=== PATIENT | female | born 1930 | race Caucasian/White ===

== ENCOUNTER 2020-06-16 12:20 | Inpatient (IN) ==
[2020-06-16] MEDS ORDERED: PANTOprazole 80 MG in DEXTROSE 5% 100 ML IV ONE (12:57)
[2020-06-16] MEDS ORDERED: SODIUM CHLORIDE 0.9% 250 ML IV PRN ×3 (12:57→18:55)
[2020-06-16] MEDS ORDERED: SODIUM CHLORIDE 0.9% 500 ML IV SCH (13:00)
[2020-06-16] MEDS ORDERED: PANTOprazole 40 MG in DEXTROSE 5% 100 ML IV SCH (13:00)
--- NOTE | 2020-06-16 13:07 | Emergency Department Note ---
Impression & Plan Weakness, Anemia, SOB (shortness of breath), Acute GI bleeding ED Provider Note NAME: ASHLEY MONTOYA AGE: 89 SEX: F : 1930 ARRIVES VIA: Walk-In INFORMANT: [Patient][family] ED PROVIDER(S): [Francisco Ospina MD] CHIEF COMPLAINT: Anemia HISTORY OF PRESENT ILLNESS: The patient is an 89-year-old female with metastatic breast cancer. She finished radiation therapy about 1.5 weeks ago. She is not on chemotherapy. The patient states that she is on Xarelto for a left leg DVT. This was diagnosed about a month ago. In the last week or so, the patient has had incr eased fatigue. She has noticed some shortness of breath especially with exertion. No chest pain. No nausea or vomiting or diarrhea. She did not notice any black stools but does not often check the toilet after a bowel movement. There is no abdominal pain, no chest pain. Patient had routine laboratory work done today, her hemoglobin was reported at around 6. She was sent to the hospital for the possibility of GI bleeding. The patient has no history of GI bleeding, she has never had a blood transfusion. She states that she has been so weak the last 5 to 7 days that she has a very difficult time even standing. REVIEW OF SYSTEMS: See HPI for pertinent positives and negatives. A total of ten systems were reviewed and were otherwise negative. PMHx/PSHx: See Below SOCIAL HISTORY: See Below. PHYSICAL EXAM: GENERAL: Patient is in no acute distress. HEENT: No acute trauma, normocephalic atraumatic, mucous membranes moist, no nasal congestion, no scleral icterus. NECK: No stridor, no adenopathy, no meningismus, trachea is midline. LUNGS: Clear to auscultation bilaterally, no wheeze, no rhonchi, breath sounds equal. HEART: Subtle systolic murmur, regular rate and rhythm. ABDOMEN: Soft, nontender, bowel sounds positive, small nontender umbilical hernia, no peritonitis. EXTREMITIES: No cyanosis, mild bilateral pedal edema, full range of motion of all the joints without pain or difficulty, no signs for acute trauma. NEUROLOGIC: Oriented x 3, no acute motor or sensory deficits, no focal weakness. SKIN: No jaundice, no diaphoresis. Rectal: Dark brown stool, heme positive. DIFFERENTIAL DIAGNOSIS: Diverticulosis, AVM, coagulopathy, colitis, inflammatory bowel disease, malignancy, Nyasia-Cade tear, esophagitis, peptic ulcer disease, variceal bleed, gastritis, epistaxis, fissure, hemorrhoids, as well as other pathologies. EMERGENCY DEPARTMENT COURSE/PROCEDURES: ECG: Indication was GI bleed and weakness. The ECG shows a normal sinus rhythm with a rate of 87. There are some biphasic T waves in the anterior leads. There is no ST elevation, no PVCs. The QTc is 445. There are no old ECGs available for comparison. Continuous Cardiac Monitoring: An order was placed for continuous cardiac monitoring. The monitor shows a rate of 91 with normal sinus rhythm. Critical Care Note: I have personally spent 52 minutes of critical care time in the direct management of this patient. This includes bedside care, interpretation of diagnostic studies, and testing, discussion with consultants, patient, and family members, and other required patient management activities. This 52 minutes is in excess of all separately billable procedures. MEDICAL DECISION MAKING: There is no leukocytosis. The patient is anemic with a hemoglobin of 6.4. There is a normal platelet count. INR is somewhat elevated at 1.6, likely from her Xarelto use. No significant electrolyte abnormality or kidney failure. No elevated liver enzymes. No evidence for pancreatitis. ECG shows a sinus rhythm, no acute ischemia. Cardiac enzyme testing x1 is not consistent with acute cardiac injury. On exam, the patient's stool was dark brown in color and heme positive. She was slightly hypotensive. The patient received IV saline for hydration. She was given a bolus of IV Protonix and placed on a Protonix drip. She was ordered for 1 unit of packed red blood cells for transfusion. The consent for transfusion was completed and signed. Patient's blood pressure is improved since treatment here in the ED. The patient is on blood thinners, she is anemic, she is short of breath and weak. She is suffering from a GI bleed. Hospitalization is warranted. I spoke to the patient, I talked with the classification case manager. The on-call hospitalist has been consulted. Further work-up/care is required. At this point, the source of the GI bleeding is not clear. 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 Beliefs That Will Affect Care: None marital status: / Current Living Situation: Alone Current Living Situation Comment: lives alone, has stair lift chair; family lives nearby for help prn How many Children do You have: 2 other: "I'd like my life to be a little easier...what's going to happen Feels Safe at Home: Yes Childhood Exposure to Second-Hand Smoke: No Diet Comment: has had to modify for easier to chew and swallow caffeine: Yes (iced tea) during the past year weight has: remained stable Dental Care, Regularly: Yes Physical Activity Frequency: Daily Physical Activity Frequency Comment: walks from house to mailbox and around yard daily Seatbelt Use: always Sunscreen Use: No Allergies Allergies Allergy/AdvReac Type Severity Reaction Status Date / Time tamoxifen AdvReac Intermediate pain all Verified 06/16/20 13:56 over, sweating, delusions Home Meds Home Medications Medication Instructions Recorded Confirmed anastrozole 1 mg tablet 1 mg PO QAM 05/13/20 06/16/20 diltiazem HCl 240 mg 240 mg PO QAM 05/13/20 06/16/20 capsule,extended release 24 hr metoprolol succinate 100 mg PO HS 06/16/20 06/16/20 rivaroxaban [Xarelto] 20 mg PO QAM 06/16/20 06/16/20 Results & Data (ED) Vital Signs Vital Signs - 24 hr 06/16/20 12:31 06/16/20 13:37 06/16/20 14:13 Temperature 37.3 C Temperature Source Oral Pulse Rate 85 Pulse Rate [Apical] 92 H Respiratory Rate 18 21 Blood Pressure 97/49 L Blood Pressure [Left Arm] 119/70 Blood Pressure Mean 65 Blood Pressure Mean [Left Arm] 86 Pulse Oximetry 98 96 93 Oxygen Delivery Method Room Air Room Air Sepsis Recent Fever Within 48 Hours No Sepsis New/Unexplained Change in Mental Status No Sepsis Action Taken by Nursing No Action Required Home Medications Current Medication List: was personally reviewed by me Laboratory Data Attestation: I reviewed the patient's lab results. Result diagrams: 06/16/20 13:43 06/16/20 13:43 Lab Results 06/16/20 06/16/20 06/16/20 Range/Units 10:22 13:43 13:43 WBC 5.82 (4.8-10.8) K/uL RBC 3.01 L (4.2-5.4) M/uL Hgb 6.4 L* (12.0-16.0) g/dL Hct 21.9 L (37-47) % MCV 72.8 L (80-100) fL MCH 21.3 L (25-34) pg MCHC 29.2 L (32-36) g/dL RDW Std Deviation 43.4 (36.4-46.3) fL RDW Coeff of Arjun 16.1 H (11.5-14.5) % Plt Count 313 (130-400) K/uL MPV 9.4 (7.4-10.4) fL Immature Gran % (Auto) 0.0 % Neut % (Auto) 67.9 % Lymph % (Auto) 20.6 % [place] % (Auto) 9.5 % Eos % (Auto) 1.5 % Baso % (Auto) 0.5 % Neut # (Auto) 3.95 (1.4-6.5) K/uL Lymph # (Auto) 1.20 (1.2-3.4) K/uL [place] # (Auto) 0.55 (0.11-0.59) K/uL Eos # (Auto) 0.09 (0-0.5) K/uL Baso # (Auto) 0.03 (0-0.2) K/uL Immature Gran # (Auto) 0.00 (0.00-0.02) K/uL Hypochromasia Present Microcytosis Present Ovalocytes 1+ PT (9.0-12.0) Seconds INR (0.9-1.1) APTT (21.0-31.0) Seconds PTT Ratio Sodium (136-145) mmol/L Potassium (3.5-5.1) mmol/L Chloride (98-107) mmol/L Carbon Dioxide (21-32) mmol/L Anion Gap (3-11) BUN (7-18) mg/dl Creatinine (0.6-1.2) mg/dl Est Cr Clr Drug Dosing ml/min Est GFR ( Amer) Est GFR (Non-Af Amer) BUN/Creatinine Ratio (-20) Glucose (70-99) mg/dl Calcium (8.5-10.1) mg/dl Total Bilirubin (0.2-1) mg/dl AST (15-37) U/L ALT (12-78) U/L Alkaline Phosphatase (45-117) U/L Troponin I (0-0.045) ng/ml Total Protein (6.4-8.2) gm/dl Albumin (3.4-5.0) gm/dl Globulin (2.5-4.0) gm/dl Albumin/Globulin Ratio (0.9-2) Lipase (73-393) U/L Specimen Hemolysis Blood Type O Positive Blood Type Recheck O Positive Antibody Screen NEGATIVE Crossmatch See Detail 06/16/20 06/16/20 Range/Units 13:43 13:43 WBC (4.8-10.8) K/uL RBC (4.2-5.4) M/uL Hgb (12.0-16.0) g/dL Hct (37-47) % MCV (80-100) fL MCH (25-34) pg MCHC (32-36) g/dL RDW Std Deviation (36.4-46.3) fL RDW Coeff of Arjun (11.5-14.5) % Plt Count (130-400) K/uL MPV (7.4-10.4) fL Immature Gran % (Auto) % Neut % (Auto) % Lymph % (Auto) % [place] % (Auto) % Eos % (Auto) % Baso % (Auto) % Neut # (Auto) (1.4-6.5) K/uL Lymph # (Auto) (1.2-3.4) K/uL [place] # (Auto) (0.11-0.59) K/uL Eos # (Auto) (0-0.5) K/uL Baso # (Auto) (0-0.2) K/uL Immature Gran # (Auto) (0.00-0.02) K/uL Hypochromasia Microcytosis Ovalocytes PT 16.0 H (9.0-12.0) Seconds INR 1.6 H (0.9-1.1) APTT 26.7 (21.0-31.0) Seconds PTT Ratio 1.0 Sodium 142 (136-145) mmol/L Potassium 4.1 (3.5-5.1) mmol/L Chloride 110 H (98-107) mmol/L Carbon Dioxide 25 (21-32) mmol/L Anion Gap 7.0 (3-11) BUN 28 H (7-18) mg/dl Creatinine 1.18 (0.6-1.2) mg/dl Est Cr Clr Drug Dosing 27.9 ml/min Est GFR ( Amer) 47.4 Est GFR (Non-Af Amer) 40.9 BUN/Creatinine Ratio 23.4 H (10-20) Glucose 131 H (70-99) mg/dl Calcium 9.1 (8.5-10.1) mg/dl Total Bilirubin 0.2 (0.2-1) mg/dl AST 15 (15-37) U/L ALT 13 (12-78) U/L Alkaline Phosphatase 63 (45-117) U/L Troponin I < 0.015 (0-0.045) ng/ml Total Protein 6.1 L (6.4-8.2) gm/dl Albumin 2.9 L (3.4-5.0) gm/dl Globulin 3.2 (2.5-4.0) gm/dl Albumin/Globulin Ratio 0.9 (0.9-2) Lipase 110 (73-393) U/L Specimen Hemolysis Blood Type Blood Type Recheck Antibody Screen Crossmatch Administered Medications Pantoprazole Sodium 40 mg/ (Dextrose) 100 mls @ 20 mls/hr IV Q5H LOVE Stop: 06/16/20 17:59 Last Admin: 06/16/20 14:29 Dose: 8 mg/hr, 20 mls/hr Documented by: [id number] Discontinued Medications Sodium Chloride (Nss) 500 mls @ 999 mls/hr IV .Q31M LOVE Stop: 06/16/20 13:30 Last Infusion: 06/16/20 14:41 Dose: 0 mls/hr Documented by: [id number] Admin: 06/16/20 14:10 Dose: 999 mls/hr Documented by: [id number] Pantoprazole Sodium 80 mg/ (Dextrose) 100 mls @ 400 mls/hr IV NOW ONE Stop: 06/16/20 13:11 Last Infusion: 06/16/20 14:25 Dose: 0 mls/hr Documented by: [id number] Admin: 06/16/20 14:10 Dose: 400 mls/hr Documented by: [id number] Discharge Plan Visit Data Chief Complaint: Abnormal Labs/Diagnostic Testing Stated Complaint: ANEMIA,LOW HEMOGLOBIN,INTERNAL BLEEDING ED Provider: Francisco Ospina Discharge Problem: Weakness, Anemia, SOB (shortness of breath), Acute GI bleeding Patient Disposition: Admitted As Inpatient Condition: Fair Forms Stand Alone Forms: [facility] Prescriptions Prescriptions: No Action diltiazem HCl [Cardizem CD] 240 mg capsule,extended release 24hr 240 mg PO QAM RF: 0 anastrozole 1 mg tablet 1 mg PO QAM RF: 0 metoprolol succinate 100 mg tablet extended release 24 hr 100 mg PO HS RF: 0 Xarelto 20 mg tablet 20 mg PO QAM RF: 0 Referrals Referrals: Brendan Davis MD [Primary Care Provider] - Discharge Problem: Anemia Qualifiers: Anemia type: unspecified type Qualified Code(s): D64.9 - Anemia, unspecified
[2020-06-16 13:59] LABS: Hematocrit (blood only) 21.9 % (37-47); Hemoglobin 6.4 g/dL (12.0-16.0); Mean Corpuscular Hemoglobin 21.3 pg (25-34); Mean Corpuscular Hgb Conc 29.2 g/dL (32-36); Mean Corpuscular Volume 72.8 fL (80-100); Mean Platelet Volume 9.4 fL (7.4-10.4); Platelet Count 313 K/uL (130-400); RDW Coefficient of Variation 16.1 % (11.5-14.5); RDW Standard Deviation 43.4 fL (36.4-46.3); Red Blood Count 3.01 M/uL (4.2-5.4); White Blood Count 5.82 K/uL (4.8-10.8)
[2020-06-16 14:15] LABS: INR 1.6 (0.9-1.1); Partial Thromboplastin Time 26.7 Seconds (21.0-31.0)
[2020-06-16 14:24] LABS: Basophils # (auto) 0.03 K/uL (0-0.2); Basophils % (auto) 0.5 %; Eosinophils # (auto) 0.09 K/uL (0-0.5); Eosinophils % (auto) 1.5 %; Hypochromasia Present; Lymphocytes % (auto) 20.6 %; Microcytosis Present; Monocytes # (auto) 0.55 K/uL (0.11-0.59); Monocytes % (auto) 9.5 %; Neutrophils # (auto) 3.95 K/uL (1.4-6.5); Neutrophils % (auto) 67.9 %; Ovalocytes 1+
[2020-06-16 14:28] LABS: Alanine Aminotransferase 13 U/L (12-78); Albumin Globulin Ratio 0.9 (0.9-2); Albumin Level 2.9 gm/dl (3.4-5.0); Alkaline Phosphatase 63 U/L (45-117); Aspartate Aminotransferase 15 U/L (15-37); BUN Creatinine Ratio 23.4 (10-20); Bilirubin,Total 0.2 mg/dl (0.2-1); Blood Urea Nitrogen 28 mg/dl (7-18); Calcium 9.1 mg/dl (8.5-10.1); Carbon Dioxide 25 mmol/L (21-32); Chloride 110 mmol/L (98-107); Creatinine Clr Calc Pharmacy 27.9 ml/min; Est GFR (African American) 47.4; Est GFR (Non-African American) 40.9; Globulin 3.2 gm/dl (2.5-4.0); Glucose 131 mg/dl (70-99); Lipase 110 U/L (73-393); Potassium 4.1 mmol/L (3.5-5.1); Sodium 142 mmol/L (136-145); Total Protein 6.1 gm/dl (6.4-8.2); Troponin I < 0.015 ng/ml (0-0.045)
--- NOTE | 2020-06-16 14:58 | History & Physical Report ---
Date of Service June 16, 2020 Assessment & Plan (1) Anemia: Patient is symptomatic anemia likely as a result of her recent therapeutic anticoagulation for DVT. Because she has osteoblastic agents from her breast cancer concern for bone marrow infiltration could also be undertaken as she has not noticed any signs of external blood loss. To this end we will transfuse her with 2 units packed red blood cells check hemoglobin in the evening and in the morning we will check a reticulocyte count iron indices and a haptoglobin level. Her bilirubin is not elevated which goes against this being hemolysis and LDH will be added to morning labs patient typically follows with Dr. Barfield he will be consulted for further advice on her anemic work-up (2) Metastatic breast cancer: Patient typically sees Dr. Vilchis takes anastrozole there was some disc ussion about Xgeva starting. We will consult Dr. Fontana. We did have some also discussion regarding her CODE STATUS and she seems unsettled regarding this will have a palliative care and consult her goals of care discussion (3) Hypertension: Patient takes significant doses of both diltiazem and metoprolol. These will both reproduce that she is slightly hypotensive on presentation which is concerning for possible intravascular depletion from bleeding. Her metoprolol will be reduced from 100 succinate at bedtime to 25 tartrate twice daily she will take a dose 25 tonight to avoid reflex tachycardia. He will diltiazem already be reduced from 240-day to possibly 120 they in the morning unless her blood pressures are low then this will need to be held (4) Left leg swelling: DVT diagnosed with her she was on Xarelto for this and Xarelto is being held due to concern for symptomatic anemia. Is unclear whether the patient will be transition to long-term anticoagulation in future this is a malignancy associated DVT consideration for IVC filter could be also undertaken if her anemia is from significant blood loss which would prohibit anticoagulation in the future at this point time the patient will have her leg elevated History of Present Illness Primary Care Provider: Brendan Davis MD 89-year-old female with metastatic breast cancer. She finished radiation therapy to her sacrum about 1.5 weeks ago. She is was previously on anastrazole. The patient states that she is on Xarelto for a left leg DVT that was diagnosed in April 2020. She has presistent left lower extremity swell ing and pain. In the last week or so, the patient has had increased fatigue. She has noticed some shortness of breath especially with exertion. No chest pain. No nausea or vomiting or diarrhea. She did not notice any black stools but does not often check the toilet after a bowel movement. There is no abdominal pain, no chest pain. she has not had any darkening in urine Patient had routine laboratory work done today, her hemoglobin was reported at around 6.4. She was sent to the hospital for the possibility of GI bleeding. The patient has no history of GI bleeding, she has never had a blood transfusion. She states that she has been so weak the last 5 to 7 days that she has a very difficult time even standing. Allergies Allergy/AdvReac Type Severity Reaction Status Date / Time tamoxifen AdvReac Intermediate pain all Verified 06/16/20 13:56 over, sweating, delusions Home Medications Home Medications Medication Instructions Recorded Confirmed Type anastrozole 1 mg tablet 1 mg PO QAM 05/13/20 06/16/20 History diltiazem HCl 240 mg 240 mg PO QAM 05/13/20 06/16/20 History capsule,extended release 24 hr metoprolol succinate 100 mg PO HS 06/16/20 06/16/20 History rivaroxaban [Xarelto] 20 mg PO QAM 06/16/20 06/16/20 History Past Med/Surg History Medical History (Updated 06/16/20 @ 14:49 by Feng Kate MD) Anemia Atherosclerotic heart disease of [place] coronary artery without angina pectoris Dyspnea Electrocardiogram abnormal Family history of breast cancer (~12/14/12) Gastroesophageal reflux Gender dysphoria History of hormone therapy Hyperlipidemia Hypertension Preoperative cardiovascular examination 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 Social History (Updated 05/13/20 @ 09:54 by Bradley Barrios) Smoking Status: Never smoker Second Hand Exposure: Yes ( smoked in younger years); Hx Alcohol Use: No Hx Substance Use: No Preferred Language: Cameroonian Hearing Ability: Hard of Hearing Board Layer Required: No Beliefs That Will Affect Care: None marital status: / Current Living Situation: Alone Current Living Situation Comment: lives alone, has stair lift chair; family lives nearby for help prn How many Children do You have: 2 other: "I'd like my life to be a little easier...what's going to happen Feels Safe at Home: Yes Childhood Exposure to Second-Hand Smoke: No Diet Comment: has had to modify for easier to chew and swallow caffeine: Yes (iced tea) during the past year weight has: remained stable Dental Care, Regularly: Yes Physical Activity Frequency: Daily Physical Activity Frequency Comment: walks from house to mailbox and around yard daily Seatbelt Use: always Sunscreen Use: No Review of Systems Review of Systems: Mild distress and fatigue no headache, blurry or double vision no speech or swallowing issues no chest pain, pressure or palpitations Dyspnea on exertion, cough or wheezes no abdominal pain, nausea or vomiting, diarrhea or constipation no dysuria, hematuria or frequency no focal joint pain or swelling no back pain, CVA tenderness or radicular pain no bruising, bleeding or rashes some skin changes consistent with her metastatic disease no focal signs of weakness or numbness or altered sensation no complaints of anxiety or depression. Physical Exam Physical Exam: The patient appeared surprisingly well given her history of metastatic breast cancer for 8 years Vital signs as documented. Head exam is normocephalic atraumatic no scleral icterus Neck is without JVD, thyromegaly, or carotid bruits. Lungs are clear to auscultation, no focal loss of breath sounds Cardiac exam, Rhythm is regular.. No murmurs, rubs or gallops. Abdominal exam reveals normal bowel sounds, soft non tender, no masses Extremities are nonedematous and both pedal pulses are present Neurologic exam is alert and oriented, no focal loss of strength or sensation Skin is with very changes of aging and metastatic disease is noted Psychologically is without concerns for anxiety or depression. Results & Data Results & Data ([facility]) Vital Signs (Past 12 Hours) Vital Signs Temp Pulse Pulse Resp BP BP Pulse Ox 06/16/20 14:13 92 H 21 119/70 93 06/16/20 13:37 96 06/16/20 12:31 99.1 F 85 18 97/49 L 98 Code Status & VTE Plan VTE Prophylaxis Plan VTE Prophylaxis will be ordered: No PG Care Time/CCT Total # of Minutes Spent Total Time Spent with Patient: Total time spent is greater than 50% in coordination of care (as documented) at patient's floor/unit and/or counseling patient: Coding Level of Care Code 70376 Initial Inpt Care Lvl 3 Diagnoses Anemia D64.9 Metastatic breast cancer C50.919 Hypertension I10 Left leg swelling M79.89
--- NOTE | 2020-06-16 16:25 | Electrocardiogram Report ---
Test Reason : Blood Pressure : / mmHG Vent. Rate : 087 BPM Atrial Rate : 087 BPM P-R Int : 156 ms QRS Dur : 072 ms QT Int : 370 ms P-R-T Axes : -24 007 017 degrees QTc Int : 445 ms Poor data quality, interpretation may be adversely affected Normal sinus rhythm with sinus arrhythmia T wave abnormality, consider anterior ischemia Abnormal ECG No previous ECGs available Confirmed by Jesús Ferrell ([id number]) on 06/16/2020 4:25:27 PM Referred By: REFERRED SELF Confirmed By:Jesús Ferrell
[2020-06-16] MEDS ORDERED: ONDANSETRON INJ 2 MG/ML 2 ML VIAL IV PRN (17:29)
[2020-06-16] MEDS ORDERED: ACETAMINOPHEN 325 MG TAB PO PRN (17:29)
[2020-06-16] MEDS ORDERED: ALUMINUM/MAGNESIUM SUSP 30 ML UDC PO PRN (17:29)
[2020-06-16] MEDS: SODIUM CHLORIDE 0.9% 1000ML 1,000 ML IV SCH (18:25)
[2020-06-16 19:45] LABS: Reticulocyte % 2.4 % (0.5-2.0); Reticulocytes # 0.07 10^6/uL (0.02-0.10)
[2020-06-16] MEDS: METOPROLOL TARTRATE 25 MG TAB PO SCH (20:04)
[2020-06-16] MEDS: PANTOprazole 40 MG in DEXTROSE 5% 100 ML IV SCH (20:39)
[2020-06-17] MEDS: PANTOprazole 40 MG in DEXTROSE 5% 100 ML IV SCH ×5 (01:08→20:44)
[2020-06-17 02:13] LABS: Hematocrit (blood only) 25.4 % (37-47); Mean Corpuscular Hemoglobin 24.2 pg (25-34); Mean Corpuscular Hgb Conc 31.5 g/dL (32-36); Mean Corpuscular Volume 76.7 fL (80-100); Mean Platelet Volume 8.9 fL (7.4-10.4); Platelet Count 221 K/uL (130-400); RDW Coefficient of Variation 17.6 % (11.5-14.5); RDW Standard Deviation 49.5 fL (36.4-46.3); Red Blood Count 3.31 M/uL (4.2-5.4); White Blood Count 4.59 K/uL (4.8-10.8)
[2020-06-17 02:22] LABS: BUN Creatinine Ratio 23.7 (10-20); Calcium 7.6 mg/dl (8.5-10.1); Creatinine Clr Calc Pharmacy 41.1 ml/min; Est GFR (African American) 72.5; Est GFR (Non-African American) 62.5; Potassium 3.4 mmol/L (3.5-5.1)
[2020-06-17 07:33] LABS: Estimated Average Glucose 123 mg/dl; Hemoglobin A1C 5.9 % (4.5-5.6)
[2020-06-17] MEDS: SODIUM CHLORIDE 0.9% 1000ML 1,000 ML IV SCH (08:27)
[2020-06-17] MEDS: dilTIAZem HCL 120 MG CAPCR PO SCH (08:29)
[2020-06-17] MEDS: METOPROLOL TARTRATE 25 MG TAB PO SCH ×2 (08:29→20:45)
--- NOTE | 2020-06-17 09:34 | Gastrointestinal Consultation ---
Date of Consultation June 17, 2020 Assessment & Plan (1) Anemia: Given advanced age, widely metastatic adenocarcinoma, and lack of overt GI bleeding that would require intervention, would recommend a conservative approach and deferring endoscopies. I agree with involvement of palliative care. Can empirically cover any potential upper GI bleeding with Protonix 40 mg BID & Carafate 1 gm four times daily before meals and at bedtime. Continue to monitor H/H and treat supportively. Will advance patient's diet at the present time. Supervising Physician Co-Signing Physician Notes Agree with ELISHA Carranza Abd: Soft, NT, ND, +BS Continue current therapy and supportive care No plans for invasive workup at this time History of Present Illness Reason for Consultation: Symptomatic anemia Attending Physician: Feng Kate MD History of Present Illness Patient is an 89 yo female with metastatic adenocarcinoma of the breast. She is currently undergoing radiation therapy and was having routine labs for her oncologist when her hemoglobin was noted to be 6.4. She was advised to present to the ED. She notes that she had been feeling more tired than usual, but she denies changes in her bowel habits, abdominal pain, hematochezia, melena, or hematemesis. She denies heartburn or NSAID use. She reports she is feeling well at the moment. There are no available records from previous endoscopic evaluations. She notes that she has no significant family history of GI malignancy. Daughter has GERD, hiatal hernia, & gastroparesis. Her labs at present are H/H of 8/25.4 after transfusion. She has recently had a PET scan that indicated significant metastatic disease. While metastatic disease was noted throughout the PET, there was an FDG avid right ileocolonic lymph node and 2 areas of abnormal soft tissue thickening and FDG uptake of the proximal ascending and proximal transverse colon consistent with concern of metastatic disease. Allergies Allergy/AdvReac Type Severity Reaction Status Date / Time tamoxifen AdvReac Intermediate pain all Verified 06/16/20 13:56 over, sweating, delusions Home Medications Home Medications Medication Instructions Recorded Confirmed Type anastrozole 1 mg tablet 1 mg PO QAM 05/13/20 06/16/20 History diltiazem HCl 240 mg 240 mg PO QAM 05/13/20 06/16/20 History capsule,extended release 24 hr metoprolol succinate 100 mg PO HS 06/16/20 06/16/20 History rivaroxaban [Xarelto] 20 mg PO QAM 06/16/20 06/16/20 History Patient History Medical History Anemia Atherosclerotic heart disease of [place] coronary artery without angina pectoris Dyspnea Electrocardiogram abnormal Family history of breast cancer (~12/14/12) Gastroesophageal reflux Gender dysphoria History of hormone therapy Hyperlipidemia Hypertension Preoperative cardiovascular examination 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 Beliefs That Will Affect Care: None marital status: / Current Living Situation: Alone Current Living Situation Comment: lives alone, has stair lift chair; family lives nearby for help prn How many Children do You have: 2 Other Information That Helps Us Care for You: No other: "I'd like my life to be a little easier...what's going to happen Feels Safe at Home: Yes Safety Concerns: Feels Safe At This Time Childhood Exposure to Second-Hand Smoke: No Diet Comment: has had to modify for easier to chew and swallow caffeine: Yes (iced tea) during the past year weight has: remained stable Dental Care, Regularly: Yes Physical Activity Frequency: Daily Physical Activity Frequency Comment: walks from house to mailbox and around [address] rd daily Seatbelt Use: always Sunscreen Use: No Assistive Devices: Walker Review of Systems Constitutional: no fever and no chills Respiratory: no cough and no dyspnea Cardiovascular: no chest pain Gastrointestinal: no abdominal pain, no hematemesis, no change in bowel habits and no blood in stools Musculoskeletal: no problem reported Integumentary: no problem reported Neurologic: + generalized weakness Psychiatric: no problem reported Hematologic / Lymphatic: no unexplained weight loss Physical Exam Constitutional: WD/WN, vitals as above Eyes: no conjunctival abnormality ENMT: Ears: no hearing impairment Neck: normal visual inspection Respiratory: normal respiratory effort Cardiovascular: Extremities: no edema Gastrointestinal (Abdomen): Inspection/Auscultation: abdomen normal to inspection Skin: no rashes Psychiatric: A+Ox3, euthymic affect Results & Data ([place]) Vital Signs (Past 12 Hours) Vital Signs Temp Pulse Pulse Resp BP BP Pulse Ox 06/17/20 08:34 93 H 123/72 06/17/20 07:44 36.6 C 98 H 16 98/59 L 92 06/17/20 04:32 36.9 C 99 H 20 116/70 90 06/17/20 02:10 92 H 06/17/20 00:18 36.6 C 97 H 20 111/72 92 06/17/20 00:00 36.8 C 95 H 20 116/68 90 06/16/20 22:35 36.8 C 88 20 115/70 92 06/16/20 22:30 37.0 C 95 H 18 116/72 90 06/16/20 22:05 36.9 C 99 H 18 107/65 91 06/16/20 21:50 37 C 98 H 18 113/64 90 06/16/20 21:32 36.6 C 90 18 91 PG Care Time/CCT Total # of Minutes Spent Total Time Spent with Patient: Total time spent is greater than 50% in coordination of care (as documented) at patient's floor/unit and/or counseling patient: Coding Level of Care Code 62920 Initial Inpt Care Lvl 3 Diagnoses Anemia D64.9 Anemia type: unspecified type (1) Anemia Anemia type: unspecified type Qualified Code(s): D64.9 - Anemia, unspecified
--- NOTE | 2020-06-17 11:59 | Palliative Care Consultation ---
Date of Consultation June 17, 2020 History of Present Illness Reason for Consultation: Goals of care Requesting Physician: Dr. Scott Attending Physician: Bj Scott Allergies Allergy/AdvReac Type Severity Reaction Status Date / Time tamoxifen AdvReac Intermediate pain all Verified 06/16/20 13:56 over, sweating, delusions Home Medications Home Medications Medication Instructions Recorded Confirmed Type anastrozole 1 mg tablet 1 mg PO QAM 05/13/20 06/16/20 History diltiazem HCl 240 mg 240 mg PO QAM 05/13/20 06/16/20 History capsule,extended release 24 hr metoprolol succinate 100 mg PO HS 06/16/20 06/16/20 History rivaroxaban [Xarelto] 20 mg PO QAM 06/16/20 06/16/20 History Patient History Medical History Anemia Atherosclerotic heart disease of [place] coronary artery without angina pectoris Dyspnea Electrocardiogram abnormal Family history of breast cancer (~12/14/12) Gastroesophageal reflux Gender dysphoria History of hormone therapy Hyperlipidemia Hypertension Preoperative cardiovascular examination 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 Beliefs That Will Affect Care: None marital status: / Current Living Situation: Alone Current Living Situation Comment: lives alone, has stair lift chair; family lives nearby for help prn How many Children do You have: 2 Other Information That Helps Us Care for You: No other: "I'd like my life to be a little easier...what's going to happen Feels Safe at Home: Yes Safety Concerns: Feels Safe At This Time Childhood Exposure to Second-Hand Smoke: No Diet Comment: has had to modify for easier to chew and swallow caffeine: Yes (iced tea) during the past year weight has: remained stable Dental Care, Regularly: Yes Physical Activity Frequency: Daily Physical Activity Frequency Comment: walks from house to mailbox and around yard daily Seatbelt Use: always Sunscreen Use: No Assistive Devices: Walker Results & Data ([facility]) Vital Signs (Past 12 Hours) Vital Signs Temp Pulse Pulse Resp BP BP Pulse Ox 06/17/20 11:24 36.8 C 20 L 17 115/71 94 06/17/20 08:34 93 H 123/72 06/17/20 07:44 36.6 C 98 H 16 98/59 L 92 06/17/20 04:32 36.9 C 99 H 20 116/70 90 06/17/20 02:10 92 H 06/17/20 00:18 36.6 C 97 H 20 111/72 92 06/17/20 00:00 36.8 C 95 H 20 116/68 90 PG Care Time/CCT Total # of Minutes Spent Total Time Spent with Patient: Total time spent is greater than 50% in coordination of care (as documented) at patient's floor/unit and/or counseling patient: Coding
[2020-06-17] MEDS: SUCRALFATE 1 GM/10 ML UDC PO SCH ×3 (12:45→20:44)
--- NOTE | 2020-06-17 13:15 | Palliative Care Consultation ---
Date of Consultation June 17, 2020 Assessment & Plan (1) Palliative care encounter: 89 yo lady with metastatic breast cancer who was admitted with significant anemia and GI bleeding. I spent 40 minutes in the room with Mrs. Vasquez and her daughter, Elvira, who is also her medical POA. We reviewed her current status and discussed her goals moving forward. Her primary goal would be to remain as independent as possible for as long as possible. She has been living alone and pretty much independent for all her ADLs. She and her daughter have discussed a plan for her to move to [place] to live with her daughter if she were unable to live alone at home. We did discuss her GI bleeding and poor prognosis if bleeding does not stabilize on current meds. She does have a living will and has said that she would not want to be kept alive on machines. I discussed her current status as full code in contradiction to that. She and her daughter agree that DNR/DNI is more closely aligned with her goals. Having said that, she would want to continue current level of care. We discussed limited benefits of endoscopy and she does not want to pursue endoscopy at this time. She confirms that her daughter, Elvira Gill, is her medical power of senior trial attorney and her surrogate decision maker. Elvira was present for the discussion and supports her mothers wishes. (2) Metastatic breast cancer: (3) Acute GI bleeding: (4) Anemia: (5) Leg pain, right: Associated with edema from DVT. She describes this as discomfort which was relieved with repositioning during visit. She does have prn tylenol available at this time. (6) Weakness: Related to anemia and disease progression. Discussed likelihood that she would need help to remain at home if her condition were stable enough for discharge. Thank you for allowing palliative care to participate in the care of this delightful lady. We will follow and continue to discuss her goals as concerns as her condition evolves. History of Present Illness Reason for Consultation: Goals of care Requesting Physician: Dr. 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 She had right partial mastectomy and axillary node dissection. She subsequently had radiation therapy and did well for several years. Unfortunately, she developed cutaneous metastatic lesions in December of this year. She has been on anastrozole. She had PET scan which shows extensive metastatic disease with extensive lymphadenopathy and presumed mets in her colon. She was seeing Dr. Vilchis for routine visit yesterday and bloodwork showed significant anemia with hemoglobin of 6.6 on hospital admission. Of note, she was diagnosed with right LE DVT in April and has been on xarelto. She received 2 units of PRBCs and hemoglobin is now 8.0. She denies any abdominal pain or nausea. She has been on IV protonix as well as carafate and serial hemoglobins are being monitored. We have been consulted to assist with goals of care discussion. Allergies Allergy/AdvReac Type Severity Reaction Status Date / Time tamoxifen AdvReac Intermediate pain all Verified 06/16/20 13:56 over, sweating, delusions Home Medications Home Medications Medication Instructions Recorded Confirmed Type anastrozole 1 mg tablet 1 mg PO QAM 05/13/20 06/16/20 History diltiazem HCl 240 mg 240 mg PO QAM 05/13/20 06/16/20 History capsule,extended release 24 hr metoprolol succinate 100 mg PO HS 06/16/20 06/16/20 History rivaroxaban [Xarelto] 20 mg PO QAM 06/16/20 06/16/20 History Patient History Medical History Anemia Atherosclerotic heart disease of [place] coronary artery without angina pectoris Dyspnea Electrocardiogram abnormal Family history of breast cancer (~12/14/12) Gastroesophageal reflux Gender dysphoria History of hormone therapy Hyperlipidemia Hypertension Preoperative cardiovascular examination 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 Social History Smoking Status: Never smoker Second Hand Exposure: Yes ( smoked in younger years); Hx Alcohol Use: No Hx Substance Use: No Preferred Language: Divehi Communication Ability: Effective Hearing Ability: Hard of Hearing Speech Lang Path Required: No Beliefs That Will Affect Care: None marital status: / Current Living Situation: Alone Current Living Situation Comment: lives alone, has stair lift chair; family lives nearby for help prn How many Children do You have: 2 Other Information That Helps Us Care for You: No other: "I'd like my life to be a little easier...what's going to happen Feels Safe at Home: Yes Safety Concerns: Feels Safe At This Time Childhood Exposure to Second-Hand Smoke: No Diet Comment: has had to modify for easier to chew and swallow caffeine: Yes (iced tea) during the past year weight has: remained stable Dental Care, Regularly: Yes Physical Activity Frequency: Daily Physical Activity Frequency Comment: walks from house to mailbox and around yard daily Seatbelt Use: always Sunscreen Use: No Assistive Devices: Walker Review of Systems Constitutional: no fever, no chills and no sweats [place] Symptom Assessment Scale Pain 1/3 left LE Dyspnea 0/3 Nausea 0/3 Constipation 0/3 Anorexia 1/3 Depression 0/3 Anxiety 0/3 Fatigue 2/3 Eyes: no worsening vision Ear, Nose, Mouth, Throat: dry mouth, no difficulty swallowing Musculoskeletal: left lower extremity swelling and discomfort Integumentary: open lesions on back and hip Neurologic: + generalized weakness; no confusion Physical Exam Constitutional: cooperative; no acute distress Eyes: EOM intact bilaterally ENMT: dry oral mucosa Neck: normal visual inspection Respiratory: normal respiratory effort; no labored breathing Cardiovascular: Extremities: + edema (left LE) Gastrointestinal (Abdomen): Percussion/Palpation: abdomen nontender Skin: multiple nodular, ulcerated cutaneous mets on right back and buttocks Neurologic: moves all extremities and awake; not confused Psychiatric: Orientation: alert and oriented x 3 Eye Contact: good eye contact Affect: euthymic affect Insight: good insight Judgement: good judgement Results & Data ([facility]) Vital Signs (Past 12 Hours) Vital Signs Temp Pulse Pulse Resp BP Pulse Ox 06/17/20 11:24 98.2 F 20 L 17 115/71 94 06/17/20 08:34 93 H 123/72 06/17/20 08:00 119 H 06/17/20 07:44 97.9 F 98 H 16 98/59 L 92 06/17/20 04:32 98.4 F 99 H 20 116/70 90 06/17/20 02:10 92 H Time Spent Attending Face to face patient time 40 minutes with 20 minutes spent on discussing goals of care, code status.([id number]). Total visit time with coordination of care and chart review was 90 minutes. ([id number])
[2020-06-17 14:56] LABS: Hematocrit (blood only) 27.4 % (37-47); Hemoglobin 8.5 g/dL (12.0-16.0)
--- NOTE | 2020-06-17 15:59 | Hospitalist Progress Note ---
Date of Service June 17, 2020 Assessment & Plan (1) Acute GI bleeding: Patient with symptomatic anemia Received transfusion of packed red blood cells Repeat H&H is stable GI consulted and at this time will defer procedures and manage supportively Continue PPI Follow serial H&H (2) Anemia: Secondary to acute GI bleed Hemoglobin is currently stable Transfuse for hemoglobin less than 7 or hemodynamic change (3) Metastatic breast cancer: Status post completion of radiation therapy on 04/15/2013 with 6120 cGy She then completed palliative radiation therapy to the sacrum 06/03/2020 for metastatic disease. She received 3000 cGy Currently a palliative consult was placed Resuscitation status changed to level 5: DNR/DNI Continue supportive care Palliative medicine following (4) Hypertension: Continue diltiazem, metoprolol tartrate Follow vital signs per protocol (5) Type 2 diabetes mellitus: Diet controlled at home (6) DVT prophylaxis: No chemical prophylaxis secondary to acute GI bleed Ambulate as tolerated with assistance Admission and Anticipated Discharge Date Admission Date: June 16, 2020 Subjective Attending: Dr. Scott Patient seen and examined at bedside. Her daughter was at bedside at the time of my interview and examination. Patient states that she has some fatigue but no dyspnea with exertion. She has no active bleeding. She denies any chest pain or tightness. She is somewhat overwhelmed that she just had discussion with palliative medicine and stated that she has a lot to think about. Overall she said that she is doing well and feels better. She has no other acute complaints at this time. Review of Systems Review of Systems: All systems reviewed & are unremarkable except as noted in Subjective Physical Exam Physical Exam: GENERAL : No acute distress EYES: No icterus, gaze conjugate NOSE: No evidence of epistaxis MOUTH: No lesions or candidiasis NECK: Supple LUNGS: CTA B/L, no wheezes, rales or rhonchi HEART: Regular, rate controlled ABDOMEN: Soft, NT, ND, BS Present EXTREMITIES: No LE edema, pedal pulses intact NEURO: A&OX3 Results & Data Results & Data ([facility]) Vital Signs (Past 12 Hours) Vital Signs Temp Pulse Pulse Resp BP Pulse Ox 06/17/20 15:00 93 H 06/17/20 11:24 36.8 C 92 H 17 115/71 94 06/17/20 08:34 93 H 123/72 06/17/20 08:00 119 H 06/17/20 07:44 36.6 C 98 H 16 98/59 L 92 06/17/20 04:32 36.9 C 99 H 20 116/70 90 Laboratory Results 06/17/20 14:46 06/17/20 01:48 Diagnostic Findings No diagnostic imaging this admission PG Care Time/CCT Total # of Minutes Spent Total Time Spent with Patient: Total time spent is greater than 50% in coordination of care (as documented) at patient's floor/unit and/or counseling patient: 30 minutes including discussion with daughter Elvira and patient as well as specialist teams Coding Level of Care Code 60406 Subseq Hosp Care Lvl 2 Diagnoses Acute GI bleeding K92.2 Anemia D64.9 Anemia type: unspecified type Metastatic breast cancer C50.919 Hypertension I10 Hypertension type: essential hypertension Type 2 diabetes mellitus E11.9 DVT prophylaxis Z29.9 Time Spent (min) 30 (1) Anemia Anemia type: unspecified type Qualified Code(s): D64.9 - Anemia, unspecified (2) Hypertension Hypertension type: essential hypertension Qualified Code(s): I10 - Essential (primary) hypertension
[2020-06-17] MEDS ORDERED: POTASSIUM CHLORIDE 20 MEQ TABCR PO ONE (16:30)
[2020-06-17 20:48] LABS: Hematocrit (blood only) 28.8 % (37-47); Hemoglobin 8.8 g/dL (12.0-16.0)
[2020-06-18] MEDS: PANTOprazole 40 MG in DEXTROSE 5% 100 ML IV SCH ×2 (01:33→06:11)
[2020-06-18 02:52] LABS: Hematocrit (blood only) 24.9 % (37-47); Hemoglobin 7.7 g/dL (12.0-16.0); Mean Corpuscular Hemoglobin 23.8 pg (25-34); Mean Corpuscular Hgb Conc 30.9 g/dL (32-36); Mean Corpuscular Volume 76.9 fL (80-100); Mean Platelet Volume 9.5 fL (7.4-10.4); Platelet Count 233 K/uL (130-400); RDW Coefficient of Variation 17.8 % (11.5-14.5); RDW Standard Deviation 50.2 fL (36.4-46.3); Red Blood Count 3.24 M/uL (4.2-5.4)
[2020-06-18 03:09] LABS: BUN Creatinine Ratio 16.2 (10-20); Calcium 7.3 mg/dl (8.5-10.1); Creatinine Clr Calc Pharmacy 35.3 ml/min; Est GFR (African American) 60.8; Est GFR (Non-African American) 52.4; Potassium 3.8 mmol/L (3.5-5.1)
[2020-06-18] MEDS: dilTIAZem HCL 120 MG CAPCR PO SCH (08:18)
[2020-06-18] MEDS: SUCRALFATE 1 GM/10 ML UDC PO SCH ×4 (08:18→20:56)
[2020-06-18] MEDS: METOPROLOL TARTRATE 25 MG TAB PO SCH ×2 (08:18→20:56)
[2020-06-18] MEDS: PANTOprazole 40 MG TAB PO SCH ×2 (10:07→20:56)
[2020-06-18 10:50] LABS: Hematocrit (blood only) 29.2 % (37-47); Hemoglobin 9.2 g/dL (12.0-16.0)
--- NOTE | 2020-06-18 13:29 | Palliative Care Consultation ---
Date of Consultation June 17, 2020 Assessment & Plan (1) Palliative care encounter: 89 yo lady with metastatic breast cancer who was admitted with significant anemia and GI bleeding. I spent 40 minutes in the room with Mrs. Vasquez and her daughter, Elvira, who is also her medical POA. We reviewed her current status and discussed her goals moving forward. Her primary goal would be to remain as independent as possible for as long as possible. She has been living alone and pretty much independent for all her ADLs. She and her daughter have discussed a plan for her to move to [place] to live with her daughter if she were unable to live alone at home. We did discuss her GI bleeding and poor prognosis if bleeding does not stabilize on current meds. She does have a living will and has said that she would not want to be kept alive on machines. I discussed her current status as full code in contradiction to that. She and her daughter agree that DNR/DNI is more closely aligned with her goals. Having said that, she would want to continue current level of care. We discussed limited benefits of endoscopy and she does not want to pursue endoscopy at this time. She confirms that her daughter, Elvira Gill, is her medical power of sports attorney and her surrogate decision maker. Elvira was present for the discussion and supports her mothers wishes. (2) Metastatic breast cancer: (3) Anemia: Anemia type: unspecified type Qualified Code(s): D64.9 - Anemia, unspecified (4) Acute GI bleeding: (5) Leg pain, right: Associated with edema from DVT. She describes this as discomfort which was relieved with repositioning during visit. She does have prn tylenol available at this time. (6) Weakness: Related to anemia and disease progression. Discussed likelihood that she would need help to remain at home if her condition were stable enough for discharge. Thank you for allowing palliative care to participate in the care of this delightful lady. We will follow and continue to discuss her goals as concerns as her condition evolves. 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 She had right partial mastectomy and axillary node dissection. She subsequently had radiation therapy and did well for several years. Unfortunately, she developed cutaneous metastatic lesions in December of this year. She has been on anastrozole. She had PET scan which shows extensive metastatic disease with extensive lymphadenopathy and presumed mets in her colon. She was seeing Dr. Vilchis for routine visit yesterday and bloodwork showed significant anemia with hemoglobin of 6.6 on hospital admission. Of note, she was diagnosed with right LE DVT in April and has been on xarelto. She received 2 units of PRBCs and hemoglobin is now 8.0. She denies any abdominal pain or nausea. She has been on IV protonix as well as carafate and serial hemoglobins are being monitored. We have been consulted to assist with goals of care discussion. Allergies Allergy/AdvReac Type Severity Reaction Status Date / Time tamoxifen AdvReac Intermediate pain all Verified 06/16/20 13:56 over, sweating, delusions Home Medications Home Medications Medication Instructions Recorded Confirmed Type anastrozole 1 mg tablet 1 mg PO QAM 05/13/20 06/16/20 History diltiazem HCl 240 mg 240 mg PO QAM 05/13/20 06/16/20 History capsule,extended release 24 hr metoprolol succinate 100 mg PO HS 06/16/20 06/16/20 History rivaroxaban [Xarelto] 20 mg PO QAM 06/16/20 06/16/20 History Patient History Medical History Anemia Atherosclerotic heart disease of [place] coronary artery without angina pectoris Dyspnea Electrocardiogram abnormal Family history of breast cancer (~12/14/12) Gastroesophageal reflux Gender dysphoria History of hormone therapy Hyperlipidemia Hypertension Preoperative cardiovascular examination 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 Social History Smoking Status: Never smoker Second Hand Exposure: Yes ( smoked in younger years); Hx Alcohol Use: No Hx Substance Use: No Preferred Language: Chinese Communication Ability: Effective Hearing Ability: Hard of Hearing [employer] Required: No Beliefs That Will Affect Care: None marital status: / Current Living Situation: Alone Current Living Situation Comment: lives alone, has stair lift chair; family lives nearby for help prn How many Children do You have: 2 Other Information That Helps Us Care for You: No other: "I'd like my life to be a little easier...what's going to happen Feels Safe at Home: Yes Safety Concerns: Feels Safe At This Time Childhood Exposure to Second-Hand Smoke: No Diet Comment: has had to modify for easier to chew and swallow caffeine: Yes (iced tea) during the past year weight has: remained stable Dental Care, Regularly: Yes Physical Activity Frequency: Daily Physical Activity Frequency Comment: walks from house to mailbox and around yard daily Seatbelt Use: always Sunscreen Use: No Assistive Devices: Walker Review of Systems Eyes: no problem reported Ear, Nose, Mouth, Throat: dry mouth Cardiovascular: no chest pain and no palpitations Musculoskeletal: + swelling (with discomfort Left LE) Integumentary: skin lesion on back Psychiatric: no depression and no anxiety Physical Exam Constitutional: cooperative; no acute distress ENMT: dry oral mucosa Neck: normal visual inspection Respiratory: normal respiratory effort; no labored breathing Gastrointestinal (Abdomen): Inspection/Auscultation: abdomen normal to inspection Musculoskeletal: Edema, left LE, no erythema, nontender to palpation Skin: multiple nodular, ulcerated cutaneous lesions on right lower back Neurologic: awake; not confused Psychiatric: Orientation: alert and oriented x 3 Eye Contact: good eye contact Affect: euthymic affect Insight: good insight Judgement: good judgement Results & Data ([facility]) Vital Signs (Past 12 Hours) Vital Signs Temp Pulse Pulse Resp BP Pulse Ox 06/18/20 11:24 97.9 F 91 H 18 116/72 93 06/18/20 07:11 109 H 06/18/20 06:44 97.9 F 91 H 20 144/79 H 94 06/18/20 03:12 97.9 F 93 H 20 109/73 95 PG Care Time/CCT Total # of Minutes Spent Total Time Spent with Patient: Face to face patient time 50 minutes with 30 minutes spent on discussing goals of care, code status.([id number]). Total visit time with coordination of care and chart review was 90 minutes. ([id number]) Coding Level of Care Code 44993 Inpt Consult Level 3 Diagnoses Palliative care encounter Z51.5 Metastatic breast cancer C50.919 Anemia D64.9 Anemia type: unspecified type Acute GI bleeding K92.2 Leg pain, right M79.604 Weakness R53.1 Time Spent (min) 90 Comment More than 50% of time spent on discussion and counseling for goals code status and support
--- NOTE | 2020-06-18 15:24 | Hospitalist Progress Note ---
Date of Service June 18, 2020 Assessment & Plan (1) Acute GI bleeding: Patient with symptomatic anemia Received transfusion of 1 unit packed red blood cells Serial H&H is stable. Hemoglobin today is 9.2 g/Shea GI consulted. No invasive diagnostics planned Patient lost IV access. Pantoprazole drip discontinued now that hemoglobin is stable. Pantoprazole 40 mg p.o. twice daily initiated Daily CBC (2) Anemia: Secondary to acute GI bleed Hemoglobin is currently stable at 9.2 Transfuse for hemoglobin less than 7 or hemodynamic change (3) Metastatic breast cancer: Status post completion of radiation therapy on 04/15/2013 with 6120 cGy She then completed palliative radiation therapy to the sacrum 06/03/2020 for metastatic disease. She received 3000 cGy Currently a palliative consult was placed Resuscitation status changed to level 5: DNR/DNI Continue supportive care Palliative medicine following Planning on living with daughter in [facility]. Case management consulted to assist with transition (4) Hypertension: Continue diltiazem, metoprolol tartrate Follow vital signs per protocol (5) Type 2 diabetes mellitus: Diet controlled at home (6) DVT prophylaxis: No chemical prophylaxis secondary to acute GI bleed Ambulate as tolerated with assistance Please refer to Dr. Scott's addendum for further recommendations. Admission and Anticipated Discharge Date Admission Date: June 16, 2020 Subjective Attending: Dr. Scott Is an 89-year-old female that was admitted with GI bleed. She has not had any further bleeding and currently has a hemoglobin of 9.2 g/Shea. She denies any fever or chills. No abdominal pain. He did have a bowel movement today but did not notice any bright red blood per rectum, melana, hematochezia. No further complaints but still with fatigue. Review of Systems Review of Systems: All systems reviewed & are unremarkable except as noted in Subjective Physical Exam Physical Exam: GENERAL : No acute distress. Pleasant EYES: No icterus, gaze conjugate NOSE: No evidence of epistaxis MOUTH: No lesions or candidiasis NECK: Supple LUNGS: CTA B/L, no wheezes, rales or rhonchi HEART: Regular, rate controlled ABDOMEN: Soft, NT, ND, BS Present EXTREMITIES: No LE edema, pedal pulses intact NEURO: A&OX3 Results & Data Results & Data ([facility]) Vital Signs (Past 12 Hours) Vital Signs Temp Pulse Pulse Resp BP Pulse Ox 10/22/20 11:24 36.6 C 91 H 18 116/72 93 06/18/20 07:11 109 H 06/18/20 06:44 36.6 C 91 H 20 144/79 H 94 Laboratory Results 06/18/20 10:20 06/18/20 02:27 Diagnostic Findings No further diagnostic imaging ordered PG Care Time/CCT Total # of Minutes Spent Total Time Spent with Patient: Total time spent is greater than 50% in coordination of care (as documented) at patient's floor/unit and/or counseling patient: 30 minutes including discussion with thaddeus Felix. Coding Level of Care Code 88752 Subseq Hosp Care Lvl 2 Diagnoses Acute GI bleeding K92.2 Anemia D64.9 Anemia type: unspecified type Metastatic breast cancer C50.919 Hypertension I10 Hypertension type: essential hypertension Type 2 diabetes mellitus E11.9 DVT prophylaxis Z29.9 Time Spent (min) 30 (1) Anemia Anemia type: unspecified type Qualified Code(s): D64.9 - Anemia, unspecified (2) Hypertension Hypertension type: essential hypertension Qualified Code(s): I10 - Essential (primary) hypertension
--- NOTE | 2020-06-18 15:29 | Palliative Care Progress Note ---
Date of Service June 18, 2020 Assessment & Plan (1) Palliative care encounter: Her goal is to stay with her daughter in [place] as they work on selling her house. She will eventually stay in [place] with her daughter but wants to continue f/u with Dr. Vilchis here as long as indicated. (2) Left leg swelling: with DVT. Minimal discomfort (3) Metastatic breast cancer: (4) Anemia: Admission and Anticipated Discharge Date Admission Date: June 16, 2020 Subjective Resting in bed. Denies pain in her leg. She has been out with the walker with PT and notes that her legs feel shaky. Hemoglobin stable. She did have BM with blood this morning. Review of Systems Constitutional: [place] Symptom Assessment Scale Dyspnea 0/3 Pain 0/3 Depression 0/3 Anxiety 0/3 Nausea 0/3 Anorexia 2/3 Denies constipation Eyes: no problem reported Ear, Nose, Mouth, Throat: dry mouth Respiratory: no dyspnea Cardiovascular: no chest pain and no palpitations Gastrointestinal: no abdominal pain BM this morning with blood Musculoskeletal: generalized weakness Integumentary: cutaneous mets Physical Exam Constitutional: no acute distress Respiratory: normal respiratory effort; no labored breathing Musculoskeletal: Left LE edema Skin: ulcerated metastatic nodules right back Psychiatric: Orientation: alert and oriented x 3 Results & Data ([facility]) Vital Signs (Past 12 Hours) Vital Signs Temp Pulse Pulse Resp BP Pulse Ox 06/18/20 11:24 97.9 F 91 H 18 116/72 93 06/18/20 07:11 109 H 06/18/20 06:44 97.9 F 91 H 20 144/79 H 94 PG Care Time/CCT Total # of Minutes Spent Total Time Spent with Patient: Total time spent is greater than 50% in coordination of care (as documented) at patient's floor/unit and/or counseling patient: 40 minutes ([id number]) Coding Level of Care Code 08310 Subseq Hosp Care Lvl 3 Diagnoses Palliative care encounter Z51.5 Left leg swelling M79.89 Metastatic breast cancer C50.919 Anemia D64.9 Anemia type: unspecified type Time Spent (min) 40 Comment More than 50% of time spent discussing symptom management, plan of care. (1) Anemia Anemia type: unspecified type Qualified Code(s): D64.9 - Anemia, unspecified
[2020-06-19 08:02] LABS: Hematocrit (blood only) 25.8 % (37-47); Hemoglobin 8.1 g/dL (12.0-16.0); Mean Corpuscular Hgb Conc 31.4 g/dL (32-36); Mean Corpuscular Volume 76.6 fL (80-100); Mean Platelet Volume 9.5 fL (7.4-10.4); Platelet Count 215 K/uL (130-400); RDW Coefficient of Variation 18.5 % (11.5-14.5); RDW Standard Deviation 51.8 fL (36.4-46.3); Red Blood Count 3.37 M/uL (4.2-5.4); White Blood Count 4.53 K/uL (4.8-10.8)
[2020-06-19 08:30] LABS: BUN Creatinine Ratio 16.1 (10-20); Calcium 7.3 mg/dl (8.5-10.1); Est GFR (African American) 67.5; Est GFR (Non-African American) 58.3; Potassium 3.5 mmol/L (3.5-5.1)
[2020-06-19] MEDS: METOPROLOL TARTRATE 25 MG TAB PO SCH ×2 (08:37→21:23)
[2020-06-19] MEDS: SUCRALFATE 1 GM/10 ML UDC PO SCH ×4 (08:37→21:23)
[2020-06-19] MEDS: PANTOprazole 40 MG TAB PO SCH ×2 (08:38→21:23)
[2020-06-19] MEDS: dilTIAZem HCL 120 MG CAPCR PO SCH (08:38)
--- NOTE | 2020-06-19 10:12 | Palliative Care Progress Note ---
Date of Service June 19, 2020 Assessment & Plan (1) Palliative care encounter: She is DNR/DNI. Goal is to go to daughter's home in [place]. Reviewed drop in hemoglobin with Irena and her daughter, Elvira. They are aware that her situation is tenuous. Elvira has to return to [place] this weekend. She would like to be called with change in condition. (2) Acute GI bleeding: (3) Weakness: Admission and Anticipated Discharge Date Admission Date: June 16, 2020 Subjective Out of bed, sitting in chair. She had another bloody BM this morning. Hemoglo bin decreased to 8.1. She denies pain Review of Systems Constitutional: [place] Symptom Assessment pain 0/3 dyspnea 0/3 depression 0/3 anxiety 0/3 nausea 0/3 Ear, Nose, Mouth, Throat: dry mouth Respiratory: no dyspnea Gastrointestinal: as per Subjective / HPI Musculoskeletal: generalized weakness Integumentary: open nodules on back Neurologic: + unsteadiness Psychiatric: no depression and no anxiety Physical Exam Constitutional: no acute distress ENMT: dry oral mucosa Neck: normal visual inspection Respiratory: normal respiratory effort; no labored breathing Cardiovascular: mild left LE edema Musculoskeletal: Extremities: full ROM of extremities Skin: cutaneous metatstatic nodules with ulceration right back Psychiatric: A+Ox3, euthymic affect Results & Data ([facility]) Vital Signs (Past 12 Hours) Vital Signs Temp Pulse Pulse Resp BP Pulse Ox 06/19/20 07:25 97.9 F 99 H 16 108/61 92 06/19/20 07:06 85 06/18/20 23:20 98.4 F 106 H 20 120/66 95 06/18/20 22:43 103 H PG Care Time/CCT Total # of Minutes Spent Total Time Spent with Patient: Total time spent is greater than 50% in coordination of care (as documented) at patient's floor/unit and/or counseling patient: 27 minutes ([id number]) Coding Level of Care Code 40498 Subseq Hosp Care Lvl 2 Diagnoses Palliative care encounter Z51.5 Acute GI bleeding K92.2 Weakness R53.1 Time Spent (min) 27
--- NOTE | 2020-06-19 18:25 | Hospitalist Progress Note ---
Date of Service June 19, 2020 Assessment & Plan (1) Acute GI bleeding: Patient with symptomatic anemia Received transfusion of 1 unit packed red blood cells Serial H&H is stable. Hemoglobin 9.2 yesterday, however 8.1 this AM Repeat H/H tonight GI consulted. No invasive diagnostics planned Patient lost IV access. Pantoprazole drip discontinued now that hemoglobin is stable. Pantoprazole 40 mg p.o. twice daily initiated Daily CBC [place] + stool on 06/19 (2) Anemia: Secondary to acute GI bleed As above Transfuse for hemoglobin less than 7 or hemodynamic change (3) Metastatic breast cancer: Status post completion of radiation therapy on 04/15/2013 with 6120 cGy She then completed palliative radiation therapy to the sacrum 06/03/2020 for metastatic disease. She received 3000 cGy Currently a palliative consult was placed Resuscitation status changed to level 5: DNR/DNI Continue supportive care Palliative medicine following Planning on living with daughter in [place], [place] on d/c Daughter had to leave [place] for the weekend as she ran out of her own medication per pt Case management consulted to assist with transition (4) Hypertension: Continue diltiazem, metoprolol tartrate Follow vital signs per protocol (5) Type 2 diabetes mellitus: Diet controlled at home (6) DVT prophylaxis: No chemical prophylaxis secondary to acute GI bleed Ambulate as tolerated with assistance Admission and Anticipated Discharge Date Admission Date: June 16, 2020 Subjective Pt states she feels better, but still weak at times, especially with prolonged walking. She did not red blood in her stool today. Pt denies fever, SOB, chest pain, abd pain, n/v/c/d, LE pain or swelling. She states she has a "frozen voice box" and is awaiting further eval/tx for this, on hold due to current health issues. She does have difficulty swallowing due to this, but is able to eat most food as long as it isn't too dry. Tolerating PO. Review of Systems Review of Systems: Pertinent positives and negatives reviewed in HPI--all others negative Physical Exam Constitutional: WD/WN, vitals as above Eyes: normal visual irving by confrontation and + anicteric sclerae Neck: normal visual inspection and trachea midline Respiratory: normal respiratory effort, lungs clear to auscultation Cardiovascular: Rate/Rhythm: regular rate and regular rhythm Extremities: + edema (trace LE) Gastrointestinal (Abdomen): Inspection/Auscultation: abdomen not distended Percussion/Palpation: abdomen soft; abdomen nontender Musculoskeletal: Head/Neck/Chest: normocephalic and head atraumatic peripheral pulses intact Skin: no rashes, warm and dry Neurologic: awake; not confused Speech / Cognition: normal speech Psychiatric: A+Ox3, euthymic affect Results & Data Results & Data ([facility]) Vital Signs (Past 12 Hours) Vital Signs Temp Pulse Pulse Resp BP Pulse Ox 06/19/20 17:39 104 H 06/19/20 14:49 36.8 C 89 16 101/65 97 06/19/20 11:40 36.6 C 94 H 16 95/60 L 97 06/19/20 07:25 36.6 C 99 H 16 108/61 92 06/19/20 07:06 85 PG Care Time/CCT Total # of Minutes Spent Total Time Spent with Patient: Total time spent is greater than 50% in coordination of care (as documented) at patient's floor/unit and/or counseling patient: Coding Level of Care Code 27990 Subseq Hosp Care Lvl 3 Diagnoses Acute GI bleeding K92.2 Anemia D64.9 Anemia type: unspecified type Metastatic breast cancer C50.919 Hypertension I10 Hypertension type: essential hypertension Type 2 diabetes mellitus E11.9 DVT prophylaxis Z29.9 (1) Anemia Anemia type: unspecified type Qualified Code(s): D64.9 - Anemia, unspecified (2) Hypertension Hypertension type: essential hypertension Qualified Code(s): I10 - Essential (primary) hypertension
[2020-06-19 18:39] LABS: Hematocrit (blood only) 27.1 % (37-47); Hemoglobin 8.1 g/dL (12.0-16.0)
[2020-06-20 06:26] LABS: Hematocrit (blood only) 23.9 % (37-47); Hemoglobin 7.5 g/dL (12.0-16.0); Mean Corpuscular Hemoglobin 24.1 pg (25-34); Mean Corpuscular Hgb Conc 31.4 g/dL (32-36); Mean Corpuscular Volume 76.8 fL (80-100); Mean Platelet Volume 9.7 fL (7.4-10.4); Platelet Count 186 K/uL (130-400); RDW Coefficient of Variation 18.9 % (11.5-14.5); RDW Standard Deviation 53.5 fL (36.4-46.3); Red Blood Count 3.11 M/uL (4.2-5.4); White Blood Count 4.74 K/uL (4.8-10.8)
[2020-06-20 06:54] LABS: BUN Creatinine Ratio 22.5 (10-20); Calcium 7.2 mg/dl (8.5-10.1); Creatinine Clr Calc Pharmacy 36.4 ml/min; Est GFR (Non-African American) 55.2; Potassium 3.5 mmol/L (3.5-5.1)
[2020-06-20] MEDS: dilTIAZem HCL 120 MG CAPCR PO SCH (07:22)
[2020-06-20] MEDS: PANTOprazole 40 MG TAB PO SCH ×2 (07:22→20:00)
[2020-06-20] MEDS: SUCRALFATE 1 GM/10 ML UDC PO SCH ×4 (07:22→20:00)
[2020-06-20] MEDS: METOPROLOL TARTRATE 25 MG TAB PO SCH ×2 (07:23→20:01)
--- NOTE | 2020-06-20 21:35 | Hospitalist Progress Note ---
Date of Service June 20, 2020 Assessment & Plan (1) Acute GI bleeding: Patient with symptomatic anemia related to acute blood loss due to anticoagulation use Received transfusion of 1 unit packed red blood cells during admission Serial H&H is stable. Hemoglobin 9.2 on 06/18, however 8.1 AM and HS 06/19 Now at 7.5 Pt had a large bloody bowel movement AM on 06/19, so hopefully this drop is reflective of that bleed and not an ongoing bleed GI consulted earlier in admission. No invasive diagnostics planned due to concerns about sedation and pt's overall ability to tolerate scopes Pantoprazole 40 mg p.o. twice daily, carafate Daily CBC [place] + stool on 06/19, check all stools to determine if bleed is ongoing If ongoing bleeding, may need t/c d/c of xarelto as pt does not want to pursue scopes. Did discuss the possibility of IVC filter being placed to prevent PE if xarelto tx of DVT cannot be tolerated Will repeat CBC in AM to help determine if bleeding has stabilized vs ongoing (2) Anemia: Secondary to acute GI bleed As above Transfuse for hemoglobin less than 7 or hemodynamic change (3) Metastatic breast cancer: Status post completion of radiation therapy on 04/15/2013 with 6120 cGy She then completed palliative radiation therapy to the sacrum 06/03/2020 for metastatic disease. She received 3000 cGy Currently a palliative consult was placed Resuscitation status changed to level 5: DNR/DNI Continue supportive care Palliative medicine following Planning on living with daughter in [place], [place] on d/c Daughter had to leave [place] for the weekend as she ran out of her own medication per pt Case management consulted to assist with transition (4) Hypertension: Continue diltiazem, metoprolol tartrate Follow vital signs per protocol (5) Type 2 diabetes mellitus: Diet controlled at home (6) DVT prophylaxis: No chemical prophylaxis secondary to acute GI bleed Ambulate as tolerated with assistance Admission and Anticipated Discharge Date Admission Date: June 16, 2020 Subjective Pt has not had further bowel movements since yesterday AM. No further blood noted in toilet. Tolerating PO without issue. Pt denies fever, SOB, chest pain, abd pain, n/v/c/d, LE pain or swelling. She states that she feels better than she has recently. Review of Systems Review of Systems: Pertinent positives and negatives reviewed in HPI--all others negative Physical Exam Constitutional: WD/WN, vitals as above Eyes: normal visual irving by confrontation and + anicteric sclerae Neck: normal visual inspection and trachea midline Respiratory: normal respiratory effort, lungs clear to auscultation Cardiovascular: Rate/Rhythm: regular rate and regular rhythm Extremities: + edema (trace LE) Gastrointestinal (Abdomen): Inspection/Auscultation: abdomen not distended Percussion/Palpation: abdomen soft; abdomen nontender Musculoskeletal: Head/Neck/Chest: normocephalic and head atraumatic Skin: no rashes, warm and dry Neurologic: awake; not confused Speech / Cognition: normal speech Psychiatric: A+Ox3, euthymic affect Results & Data Results & Data ([facility]) Vital Signs (Past 12 Hours) Vital Signs Temp Pulse Pulse Resp BP Pulse Ox 06/20/20 19:00 36.8 C 91 H 19 103/65 97 06/20/20 16:47 102 H 06/20/20 15:42 36.7 C 104 H 18 107/63 95 06/20/20 12:00 36.5 C 102 H 18 100/65 96 PG Care Time/CCT Total # of Minutes Spent Total Time Spent with Patient: Total time spent is greater than 50% in coordination of care (as documented) at patient's floor/unit and/or counseling patient: Coding Level of Care Code 49396 Subseq Hosp Care Lvl 3 Diagnoses Acute GI bleeding K92.2 Anemia D64.9 Anemia type: unspecified type Metastatic breast cancer C50.919 Hypertension I10 Hypertension type: essential hypertension Type 2 diabetes mellitus E11.9 DVT prophylaxis Z29.9 (1) Anemia Anemia type: unspecified type Qualified Code(s): D64.9 - Anemia, unspecified (2) Hypertension Hypertension type: essential hypertension Qualified Code(s): I10 - Essential (primary) hypertension
[2020-06-21 06:01] LABS: Basophils # (auto) 0.01 K/uL (0-0.2); Basophils % (auto) 0.2 %; Eosinophils # (auto) 0.29 K/uL (0-0.5); Eosinophils % (auto) 5.8 %; Hematocrit (blood only) 23.2 % (37-47); Immature Granulocytes # (auto) 0.01 K/uL (0.00-0.02); Immature Granulocytes % (auto) 0.2 %; Lymphocytes # (auto) 0.59 K/uL (1.2-3.4); Lymphocytes % (auto) 11.8 %; Mean Corpuscular Hemoglobin 23.6 pg (25-34); Mean Corpuscular Hgb Conc 30.2 g/dL (32-36); Mean Corpuscular Volume 78.1 fL (80-100); Mean Platelet Volume 9.9 fL (7.4-10.4); Monocytes # (auto) 0.73 K/uL (0.11-0.59); Monocytes % (auto) 14.5 %; Neutrophils # (auto) 3.39 K/uL (1.4-6.5); Neutrophils % (auto) 67.5 %; Platelet Count 200 K/uL (130-400); RDW Coefficient of Variation 18.9 % (11.5-14.5); RDW Standard Deviation 54.5 fL (36.4-46.3); Red Blood Count 2.97 M/uL (4.2-5.4); White Blood Count 5.02 K/uL (4.8-10.8)
--- NOTE | 2020-06-21 06:31 | Communication Note ---
Date of Service: June 21, 2020 Notified that pt's Hgb was 7.0 this AM. Was 7.5 before. Repeat H/H ordered for 9:30AM, 4 hours later. Consider transfusing for hgb<7 on repeat. Resident Activity Tracking Resident Involvement: Campus Administrator Coverage Note Care Provided: Adult Hospital Medicine
[2020-06-21 06:34] LABS: Spherocytes 1+
[2020-06-21] MEDS: dilTIAZem HCL 120 MG CAPCR PO SCH (07:23)
[2020-06-21] MEDS: PANTOprazole 40 MG TAB PO SCH ×2 (07:23→21:11)
[2020-06-21] MEDS: SUCRALFATE 1 GM/10 ML UDC PO SCH ×4 (07:23→21:10)
[2020-06-21] MEDS: METOPROLOL TARTRATE 25 MG TAB PO SCH ×2 (07:24→21:10)
[2020-06-21 09:35] LABS: Hematocrit (blood only) 25.2 % (37-47); Hemoglobin 7.6 g/dL (12.0-16.0)
--- NOTE | 2020-06-21 14:44 | Hospitalist Progress Note ---
Date of Service June 21, 2020 Assessment & Plan (1) Acute GI bleeding: Patient with symptomatic anemia related to acute blood loss due to anticoagulation use Received transfusion of 1 unit packed red blood cells during admission Serial H&H is stable. Hemoglobin 9.2 on 06/18, however 8.1 AM and HS 06/19 7.5 on 06/20, dropped to 7.0 on 06/21 AM labs, repeat later in the AM at 7.6 Pt had a large bloody bowel movement AM on 06/19, so hopefully this drop is reflective of that bleed and not an ongoing bleed GI consulted earlier in admission. No invasive diagnostics planned due to concerns about sedation and pt's overall ability to tolerate scopes Pantoprazole 40 mg p.o. twice daily, carafate Daily CBC [place] + stool on 06/19, check all stools to determine if bleed is ongoing If ongoing bleeding, may need t/c d/c of xarelto as pt does not want to pursue scopes. Did discuss the possibility of IVC filter being placed to prevent PE if xarelto tx of DVT cannot be tolerated Will repeat CBC in AM to help determine if bleeding has stabilized vs ongoing (2) Anemia: Secondary to acute GI bleed As above Transfuse for hemoglobin less than 7 or hemodynamic change (3) Metastatic breast cancer: Status post completion of radiation therapy on 04/15/2013 with 6120 cGy She then completed palliative radiation therapy to the sacrum 06/03/2020 for metastatic disease. She received 3000 cGy Currently a palliative consult was placed Resuscitation status changed to level 5: DNR/DNI Continue supportive care Palliative medicine following Planning on living with daughter in [place], [place] on d/c Daughter had to leave [place] for the weekend as she ran out of her own medication per pt Case management consulted to assist with transition (4) Hypertension: Continue diltiazem, metoprolol tartrate Follow vital signs per protocol (5) Type 2 diabetes mellitus: Diet controlled at home (6) DVT prophylaxis: No chemical prophylaxis secondary to acute GI bleed Ambulate as tolerated with assistance D/W daughter via phone. She is coming to [place] late tonight and will be here for the week. All questions answered. Admission and Anticipated Discharge Date Admission Date: June 16, 2020 Subjective Pt states she feels quite well. She has been eating without issue. No further blood seen in bowel movements, including the bowel movement from this AM. Still feels a bit weak at times with ambulation, but getting better. Review of Systems Review of Systems: Pertinent positives and negatives reviewed in HPI--all others negative Physical Exam Constitutional: WD/WN, vitals as above Eyes: normal visual irving by confrontation and + anicteric sclerae Neck: normal visual inspection and trachea midline Respiratory: normal respiratory effort, lungs clear to auscultation Cardiovascular: Rate/Rhythm: regular rate and regular rhythm Extremities: + edema (trace LE) Gastrointestinal (Abdomen): Inspection/Auscultation: abdomen not distended Percussion/Palpation: abdomen soft; abdomen nontender Musculoskeletal: Head/Neck/Chest: normocephalic and head atraumatic Skin: no rashes, warm and dry Neurologic: awake; not confused Speech / Cognition: normal speech Psychiatric: A+Ox3, euthymic affect Results & Data Results & Data ([facility]) Vital Signs (Past 12 Hours) Vital Signs Temp Pulse Resp BP Pulse Ox 06/21/20 11:32 36.7 C 89 20 112/72 95 06/21/20 08:02 36.7 C 102 H 20 122/74 94 PG Care Time/CCT Total # of Minutes Spent Total Time Spent with Patient: Total time spent is greater than 50% in coordination of care (as documented) at patient's floor/unit and/or counseling patient: Coding Level of Care Code 62954 Subseq Hosp Care Lvl 3 Diagnoses Acute GI bleeding K92.2 Anemia D64.9 Anemia type: unspecified type Metastatic breast cancer C50.919 Hypertension I10 Hypertension type: essential hypertension Type 2 diabetes mellitus E11.9 DVT prophylaxis Z29.9 (1) Anemia Anemia type: unspecified type Qualified Code(s): D64.9 - Anemia, unspecified (2) Hypertension Hypertension type: essential hypertension Qualified Code(s): I10 - Essential (primary) hypertension
[2020-06-22] MEDS: SUCRALFATE 1 GM/10 ML UDC PO SCH ×2 (08:04→13:09)
[2020-06-22] MEDS: METOPROLOL TARTRATE 25 MG TAB PO SCH (08:04)
[2020-06-22] MEDS: dilTIAZem HCL 120 MG CAPCR PO SCH (08:05)
[2020-06-22] MEDS: PANTOprazole 40 MG TAB PO SCH (08:05)
[2020-06-22 11:06] VITALS: BP 104/69; TEMP 97.7; O2SAT 98
--- NOTE | 2020-06-22 12:11 | Discharge Summary ---
Date of Service June 22, 2020 Admission HPI Per Admitting Provider 89-year-old female with metastatic breast cancer. She finished radiation therapy to her sacrum about 1.5 weeks ago. She is was previously on anastrazole. The patient states that she is on Xarelto for a left leg DVT that was diagnosed in April 2020. She has presistent left lower extremity swelling and pain. In the last week or so, the patient has had increased fatigue. She has noticed some shortness of breath especially with exertion. No chest pain. No nausea or vomiting or diarrhea. She did not notice any black stools but does not often check the toilet after a bowel movement. There is no abdominal pain, no chest pain. she has not had any darkening in urine Patient had routine laboratory work done today, her hemoglobin was reported at around 6.4. She was sent to the hospital for the possibility of GI bleeding. The patient has no history of GI bleeding, she has never had a blood machado sfusion. She states that she has been so weak the last 5 to 7 days that she has a very difficult time even standing. Admission Exam Per Admitting Provider The patient appeared surprisingly well given her history of metastatic breast cancer for 8 years Vital signs as documented. Head exam is normocephalic atraumatic no scleral icterus Neck is without JVD, thyromegaly, or carotid bruits. Lungs are clear to auscultation, no focal loss of breath sounds Cardiac exam, Rhythm is regular.. No murmurs, rubs or gallops. Abdominal exam reveals normal bowel sounds, soft non tender, no masses Extremities are nonedematous and both pedal pulses are present Neurologic exam is alert and oriented, no focal loss of strength or sensation Skin is with very changes of aging and metastatic disease is noted Psychologically is without concerns for anxiety or depression. Principal Diagnosis Acute GI bleed Anemia Discharge Exam GENERAL : No acute distress EYES: No icterus, gaze conjugate NOSE: No evidence of epistaxis MOUTH: No lesions or candidiasis NECK: Supple LUNGS: CTA B/L, no wheezes, rales or rhonchi HEART: Regular, rate controlled ABDOMEN: Soft, NT, ND, BS Present EXTREMITIES: No LE edema, pedal pulses intact NEURO: A&OX3 Discharge Data Allergies Allergy/AdvReac Type Severity Reaction Status Date / Time tamoxifen AdvReac Intermediate pain all Verified 06/16/20 13:56 over, sweating, delusions Consultations 06/16/20 13:11 ED Decision to Admit Stat 06/16/20 17:29 Consult Gastroenterology Routine Consult Palliative Care Stat Ordered Studies 06/21/20 09:23 06/20/20 05:35 Hospital Course (1) Metastatic breast cancer: Status post completion of radiation therapy on 04/15/2013 with 6120 cGy She then completed palliative radiation therapy to the sacrum 06/03/2020 for metastatic disease. She received 3000 cGy Palliative consult placed and patient seen inpatient. Patient and family agreed to discharge with palliation is the goal Continue supportive care Planning on living with daughter in [facility]. (2) Hypertension: Continue diltiazem, metoprolol tartrate reduced dosages (3) Type 2 diabetes mellitus: Diet controlled Continue heart healthy, diabetic diet Total Time Total Time Spent Total Time Spent (In Minutes): 45 Total Time Includes: Examination of the Patient, Discharge Planning, Medication Reconciliation, Communication With Other Providers and Other (Discussion with thaddeus Felix) Discharge Plan Discharge Items Patient Disposition: Home - Home Health Services Reason For Visit: SYMPTOMATIC ANEMIA Discharge Diagnosis: Symptomatic anemia, GI Bleed, Metastatic breast cancer with presumed spread to the colon. Condition on Discharge: Fair Activity: Resume your previous activity Activity Comment: as tolerated Lifting: Gradually increase as tolerated Bathing: No limitations Exercise/Sports: Gradually increase as tolerated Driving/Machine Use: No driving due to low hemoglobin Weightbearing: Full weightbearing Non-emergency contact: Primary Care Provider Call non-emergency contact if: your symptoms worsen Follow-up/Referrals: Brendan Davis MD [Primary Care Provider] - 06/30/20 3:15 pm ([facility]. DR. DAVIS) Diet: Regular Addtl Attending Provider Instructions: You were admitted with a GI Bleed and received a blood transfusion of hand packer red blood cells. Throughout your hospital stay, your hemoglobin has remained low and iscurrently 7.6 g/dL. Usually, we do not transfuse unless a patient is symptomatic or the hemoglobin drops below 7.0 g/dL. In April, you were diagnosed with several blood clots in your leg. You were started on an anticoagulant (Xarelto) at that time. This is being held due to your GI Bleed. We are discharging you home without any anticoagulation. Because of your cancer, you are at risk for clots. If you develop chest pain or swelling of your legs that is concerning, please contact your primary care provider or go to the emergency room. We are sending you home on you usual medications but will discontinue the Xarelto. We are also adding Pantoprazole (protonix) 40 mg by mouth twice daily and Carafate 1gm by mouth as needed. We are also reducing the dose on your Diltiazem (Cardizem) and your Metoprolol Tartrate (Lopressor). Prescriptions have been electronically transmitted to [facility] in [place], [place]. You will need to establish with a primary care provider once you relocate to [place]. Please have them contact your current primary Care provider as well as [facility] to have records transferred to your new provider. Pending Studies at Discharge: No Stand-Alone Forms: [facility] Medications and DC Order Prescriptions: New pantoprazole 40 mg Tablet,Delayed Release (Dr/Ec) 40 mg PO BID Qty: 60 RF: 0 diltiazem HCl 120 mg Capsule,Extended Release 24hr 120 mg PO QAM Qty: 30 RF: 0 metoprolol tartrate 25 mg Tablet 25 mg PO BID Qty: 30 RF: 0 sucralfate 100 mg/mL Suspension 10 ml PO QID PRN (Reason: Abdominal Pain) Qty: 420 RF: 0 Continued anastrozole 1 mg tablet 1 mg PO QAM RF: 0 metoprolol succinate 100 mg tablet extended release 24 hr 100 mg PO HS RF: 0 Discontinued diltiazem HCl [Cardizem CD] 240 mg capsule,extended release 24hr 240 mg PO QAM RF: 0 Xarelto 20 mg tablet 20 mg PO QAM RF: 0 Discharge Orders: Discharge Order (Routine); Ordered 06/22/20 Ordered By: Francisco Cheek Admission Data Admit Date/Time: 06/16/20 14:41 Attending Provider: Sabi Barrientos Admit Provider: Feng Kate Primary Care Provider: Brendan Davis Other Providers: Feng Kate ; Brenda Garcia ; Gage Eastman ; Francisco Cheek ; [facility] Other Interventions: Discharge Summary Assessment (RN) Last Done: 06/22/20 12:58 Supervising Physician Co-Signing Physician Notes I supervised Francisco Cheek PA-C on this admission. I interviewed and examined the patient independently of him. The plan is as written in the his note except for any following changes/exceptions: None Coding Level of Care Code D/C Day Management >30 mins Diagnoses Metastatic breast cancer C50.919 Hypertension I10 Hypertension type: essential hypertension Type 2 diabetes mellitus E11.9 Time Spent (min) 45
[2020-06-22 12:59] VITALS: PULSE 90
== END 2020-06-22 13:49 | disposition home health service (06) | DRG 813 ==
LOC: ED 12:20 → SUATTDRO 14:41 → 2W 14:41